=== PATIENT | male | born 1990 | race Caucasian/White ===

== ENCOUNTER 2016-10-21 16:21 | Emergency (ER) | payer SELFPAY ==
[~2016-10-21] VITALS: Ht 188 cm; Wt 121.8 kg
[~2016-10-21 16:21] MED LIST: DOXYCYCLINE 10100 MG PO; LORTAB 5/500 501 TAB PO; NO HOME MEDICATIONS
[2016-10-21 16:23] VITALS: TEMP 98.5
[2016-10-21] MEDS ORDERED: NORCO 325 MG-51 TAB PO (17:14)
[2016-10-21 18:05] VITALS: BP 143/83; PULSE 93
== END 2016-10-21 18:17 | disposition home or self-care (01) ==
LOC: COL.ER 16:21
DX: S43.004A Unspecified dislocation of right shoulder joint, initial encounter (principal); W11.XXXA Fall on and from ladder, initial encounter; X50.9XXA Other and unspecified overexertion or strenuous movements or postures, initial encounter
CPT/HCPCS: J2250; J2704; J7030